=== PATIENT | female | born 1950 | race Caucasian/White ===

== ENCOUNTER 2020-11-30 14:22 | Outpatient (CLI) | payer OTHER | END 2020-11-30 14:32 | disposition home or self-care (01) | LOC: RAD 14:22 | PROVIDERS: ATTEND Internal Medicine Rheumatology | DX: M47.814 Spondylosis without myelopathy or radiculopathy, thoracic region (principal); M47.817 Spondylosis without myelopathy or radiculopathy, lumbosacral region; M81.0 Age-related osteoporosis without current pathological fracture ==

== ENCOUNTER 2023-09-19 07:24 | Outpatient (CLI) | payer OTHER | END 2023-09-19 07:28 | disposition home or self-care (01) | LOC: SONOGRAMA 07:24 | PROVIDERS: ATTEND Family Medicine | DX: R10.11 Right upper quadrant pain (principal) ==

== ENCOUNTER 2024-06-21 14:45 | Outpatient (CLI) | payer OTHER | END 2024-06-21 14:48 | disposition home or self-care (01) | LOC: RAD 14:45 | PROVIDERS: ATTEND Physical Medicine & Rehabilitation | DX: M54.50 Low back pain, unspecified (principal) ==